=== PATIENT | female | born 1955 | race Two or more races ===

== ENCOUNTER 2020-08-21 10:44 | Emergency (ER) | payer MEDICARE, OTHER ==
[2020-08-21] MEDS ORDERED: ONDANSETRON HCL INJ/PF 4 MG/2 ML SDV IV ONE (11:58)
[2020-08-21] MEDS ORDERED: RINGERS SOLUTION,LACTATED 1,000 ML IV ONE (11:58)
--- NOTE | 2020-08-21 11:59 | ER Document Report ---
ED Medical Screen (RME) - General Chief Complaint: Nausea/Vomiting/Diarrhea Stated Complaint: DIARRHEA, VOMITING Time Seen by Provider: 08/21/20 11:52 Notes: Patient is a 64-year-old female presents to the emergency department with a chief complaint of nausea, vomiting, and diarrhea that started 3 days ago. Patient was tested for COVID-19, but has not received results. States that she is visiting from [place] and her daughter, who lives here works at a clinic and the patient was positive for Covid at the clinic. Patient reports that she did have some chest pain that started yesterday. States that she is now able to eat, and has been able to food down. Exam: Soft, nontender abdomen. I have greeted and performed a rapid initial assessment of this patient. A comprehensive ED assessment and evaluation of the patient, analysis of test results and completion of medical decision making process will be conducted by an additional ED providers. - Related Data Allergies/Adverse Reactions: alprazolam [From Xanax] Allergy (Verified 08/21/20 11:52) Physical Exam - Vital signs Vitals: Temp Pulse Resp BP Pulse Ox 97.7 F 77 20 127/74 H 99 08/21/20 11:01 08/21/20 11:08/21/20 11:08/21/20 11:08/21/20 11:01 Course - Vital Signs Vital signs: Temp Pulse Resp BP Pulse Ox 97.7 F 77 20 127/74 H 99 08/21/20 11:01 08/21/20 11:08/21/20 11:08/21/20 11:08/21/20 11:01
--- NOTE | 2020-08-21 12:18 | RADIOLOGY REPORT (SQ) ---
EXAM DESCRIPTION: CHEST SINGLE VIEW IMAGES COMPLETED DATE/TIME: 08/21/2020 12:06 pm REASON FOR STUDY: chest pain COMPARISON: None. EXAM PARAMETERS: NUMBER OF VIEWS: One view. TECHNIQUE: Single frontal radiographic view of the chest acquired. RADIATION DOSE: NA LIMITATIONS: None. FINDINGS: LUNGS AND PLEURA: No opacities, masses or pneumothorax. No pleural effusion. MEDIASTINUM AND HILAR STRUCTURES: No masses. Contour normal. HEART AND VASCULAR STRUCTURES: Heart normal in size. Normal vasculature. BONES: No acute findings. HARDWARE: None in the chest. OTHER: No other significant finding. IMPRESSION: NO ACUTE RADIOGRAPHIC FINDING IN THE CHEST. TECHNICAL DOCUMENTATION: JOB ID: [id number] 2010 [employer]- All Rights Reserved Reading location - IP/workstation name: [email or web address]
[2020-08-21 12:35] LABS: ABSOLUTE LYMPHOCYTES (AUTO) 1.2 10^3/uL (0.5-4.7); ABSOLUTE MONOCYTES (AUTO) 0.2 10^3/uL (0.1-1.4); ABSOLUTE NEUT (AUTO) 1.5 10^3/uL (1.7-8.2); BASOPHILS % (AUTO) 0.9 % (0-2); EOSINOPHILS % (AUTO) 0.6 % (0-6); HEMATOCRIT 38.6 % (36.0-47.0); HEMOGLOBIN 13.9 g/dL (12.0-15.5); LYMPHOCYTES % (AUTO) 41.5 % (13-45); MEAN CORPUSCULAR HGB CONC 35.9 g/dL (32.0-36.0); MEAN CORPUSCULAR VOLUME 86 fl (80-97); MONOCYTES % (AUTO) 8.2 % (3-13); PLATELET COUNT 227 10^3/uL (150-450); RED BLOOD COUNT 4.47 10^6/uL (3.72-5.28); SEGMENTED NEUTROPHILS % (AUTO) 48.8 % (42-78); TOTAL CELLS COUNTED % (AUTO) 100 %
[2020-08-21 12:54] LABS: ALBUMIN 4.7 g/dL (3.5-5.0); ALKALINE PHOSPHATASE 81 U/L (38-126); ANION GAP 8 (5-19); ASPARTATE AMINO TRANSFERASE 23 U/L (14-36); BILIRUBIN,DIRECT 0.1 mg/dL (0.0-0.4); BILIRUBIN,TOTAL 1.2 mg/dL (0.2-1.3); BLOOD UREA NITROGEN 15 mg/dL (7-20); CALCIUM 9.8 mg/dL (8.4-10.2); CARBON DIOXIDE 30 mmol/L (22-30); CHLORIDE 101 mmol/L (98-107); GLUCOSE 116 mg/dL (75-110); POTASSIUM 3.9 mmol/L (3.6-5.0); TOTAL PROTEIN 8.1 g/dL (6.3-8.2)
--- NOTE | 2020-08-21 15:21 | ER Document Report ---
ED General - General Chief Complaint: Nausea/Vomiting/Diarrhea Stated Complaint: DIARRHEA, VOMITING Time Seen by Provider: 08/21/20 11:52 - HPI Notes: Chief Complaint: Nausea, vomiting, chest pain Historian: History obtained from patient HPI: This is a 64-year-old female presents to the ER complaining of nausea vomiting diarrhea and some intermittent chest pain in the setting of suspected Covid. Patient says she was tested 1 day ago but is still pending the results. She had close contacts with people at her daughter's work that have just tested positive. Daughter also has fevers and symptoms now. Patient says she has mild cough and congestion, nausea vomiting. Left-sided anterior chest pain briefly yesterday and this morning. Patient says chest pain is sharp and nonradiating. Pain is pleuritic in nature. Pain is not exertional and she denies shortness of breath, diaphoresis, dizziness, syncope. No history of ACS or CAD. No history of PE/DVT. No long travel, trauma, surgery, hormone use, cancer, or history of PE or DVT. Denies leg swelling or hemoptysis. Patient is tolerating p.o. intake. No treatments tried. ROS: Constitutional: no fevers. HEENT: no GANDARA, sore throat, or vision changes. CV: Chest pain Resp: Cough GI: Nausea and vomiting : no dysuria, hematuria, or incont. MSK: no back pain, no joint swelling/redness. Skin: no rashes or itching. Neuro: no seizures, weakness, numbness, or confusion. Hematological: no ecchymosis or easy bleeding. Endocrine: no polyuria/polydipsia, no heat/cold intolerance. Psych: no SI/HI, AH/VH or memory loss. PMHx: Reviewed and agree as charted by RN. PSHx: Reviewed and agree as charted by RN. SOCHx: Reviewed and agree as charted by RN. FHX: No significant familial comorbid conditions directly related to patient complaint Current Medications: Reviewed and agree with the patient medications as charted by the RN. Allergies: Reviewed and agree with the listed allergies as charted by the RN Physical Exam: Vitals: Reviewed in chart as documented by RN. General: Alert and in NAD. Head: Normocephalic; atraumatic Eyes: PERRLA, Conjunctivae clear sclerae non-icteric bilat ENT: no soft palate swelling or uvular deviation Neck: trachea midline, no unilateral swelling/tenderness/lymphadenopathy CV: RRR, no M/R/G; symmetric distal pulses Resp: respirations even and unlabored, CTA bilat. GI: abd soft and nondistended. NTTP. normal BS. no masses/HSM. no CVAT bilat MSK: FROM of all extremities. No midline CTL spine tenderness/deformity Skin: warm, moist, good turgor. no rash/lesions Neuro: Alert and oriented X 4. following CN 2-12 intact. no unilateral weakness/numbness Psych: No SI/HI or AH/VH. Medical Decision-making/Differential Diagnosis: Consider various etiologies including but not limited to covid, uri, pneumonoia, bronchitis, PE- unlikely, electrolyte abnormality, Acute Decompensated congestive heart failure, Acute Exacerbation of Chronic Obstructive Pulmonary Disease, Acute coronary syndromes, pulmonary and pleural based diseases/process, Pulmonary Embolism (low probability based on history & physical, wells criteria and/or PERC rule), infection, metabolic derangement Atypical chest pain, Chest wall pain, Arteriosclerotic cardiovascular disease plan for laboratory evaluation including Labs, urine, xray, ECG, panel monitor, cont pulse oximetry. D-dimer is negative. Chest x-ray is negative. Labs are reassuring. Initial troponin is negative, 3 hours not indicated as pain began yesterday. Patient is well-appearing and story is not concerning for cardiac at this time. I suspect this is more likely related to Covid/respiratory infection versus pleurisy. Patient's heart score is a 2 and that is due to age over 65 only no other risk factors involved. She has a boiler room operator and will follow up with them as an outpatient for stress testing. updated pt regarding results-she is feeling much better. she is doing exercises in the exam room when I came in. She is happy and very well appearing. vital signs normal, O2 sats 99% on RA. willd/c home to self quarantine until covid results return. nausea meds prn. tylenol, po fluids, ad supportive care. return factors discussed. This course of action was discussed with the patient and/or family. They were amenable to this, verbalized understanding, and were without further questions - Related Data Allergies/Adverse Reactions: alprazolam [From Xanax] Allergy (Verified 08/21/20 11:52) Past Medical History - Social History Smoking Status: Never Smoker Family History: Reviewed & Not Pertinent Physical Exam - Vital signs Vitals: Temp Pulse Resp BP Pulse Ox 97.7 F 77 20 127/74 H 99 08/21/20 11:01 08/21/20 11:01 08/21/20 11:01 08/21/20 11:01 08/21/20 11:01 Course - Vital Signs Vital signs: Temp Pulse Resp BP Pulse Ox 97.7 F 77 20 127/74 H 99 08/21/20 11:01 08/21/20 11:01 08/21/20 11:01 08/21/20 11:01 08/21/20 11:01 - Laboratory Results Result Diagrams: 08/21/20 12:23 08/21/20 12:23 Laboratory Results Interpreted: 08/21/20 08/21/20 12:23 12:23 WBC 3.0 L Absolute Neuts (auto) 1.5 L Glucose 116 H Critical Laboratory Results Reviewed: No Critical Results - Radiology Results Critical Radiology Results Reviewed: No Critical Results - EKG Interpretation by Sd EKG shows normal: Sinus rhythm Rate: Normal Rhythm: NSR [place]/QRS: Right axis deviation Voltage: No: Increased voltage, Consistent with LVH, Consistent with RVH, Decreased voltage, Throughout, Limb leads Heart block present: No: 1st Degree, Mobitz 1, Mobitz 2, CHB (3rd degree block) Discharge - Discharge Clinical Impression: Close exposure to COVID-19 virus Chest pain Qualifiers: Chest pain type: chest pain on breathing Qualified Code(s): R07.1 - Chest pain on breathing; R07.81 - Pleurodynia Nausea & vomiting Qualifiers: Vomiting type: unspecified Vomiting Intractability: non-intractable Qualified Code(s): R11.2 - Nausea with vomiting, unspecified Condition: Stable Disposition: HOME, SELF-CARE Instructions: COVID-19 Guidance for Persons Under Investigation, Pleurisy ([facility]) Additional Instructions: self quarantine until covid results are called to you with further instructions. take medications as prescribed. follow up with your boiler room operator to further discuss management of your chest pain and if you need to have stress testing. drink plenty of fluids. tylenol for pain or fevers. return to the ER if your condition worsens. follow printed instructions. Prescriptions: Ondansetron [Zofran Odt 4 mg Tablet] 1 - 2 tab PO Q4H PRN #15 tab.rapdis PRN Reason: For Nausea/Vomiting Referrals: LUIS KAPLAN MD [ACTIVE STAFF] - Follow up as needed
[2020-08-21 16:26] VITALS: BP 135/77
== END 2020-08-21 16:26 | disposition home or self-care (01) ==
LOC: ER 10:44
DX: R07.1 Chest pain on breathing (principal); R07.81 Pleurodynia; R11.2 Nausea with vomiting, unspecified; R19.7 Diarrhea, unspecified; Z20.822 Contact with and (suspected) exposure to COVID-19
CPT/HCPCS: 99284; 96361; 96374; 36415; 83735; 85025; 80053; 84484; 85379; 71045; J2405; J7120